=== PATIENT | male | born 1955 | race Caucasian/White ===

== ENCOUNTER 2022-01-16 10:07 | Outpatient (CLI) | payer BC | END 2022-01-16 10:08 | disposition home or self-care (01) | LOC: TBSIIMAG 10:07 | PROVIDERS: ATTEND Neurological Surgery | DX: S12.9XXA Fracture of neck, unspecified, initial encounter (principal); M47.812 Spondylosis without myelopathy or radiculopathy, cervical region | CPT/HCPCS: 72040 ==

== ENCOUNTER 2022-01-31 14:26 | Outpatient (CLI) | payer BC | END 2022-01-31 14:27 | disposition home or self-care (01) | LOC: BICCT 14:26 | PROVIDERS: ATTEND Neurological Surgery | DX: S12.9XXA Fracture of neck, unspecified, initial encounter (principal); M47.812 Spondylosis without myelopathy or radiculopathy, cervical region | CPT/HCPCS: 72125 ==

== ENCOUNTER 2022-02-20 15:59 | Outpatient (CLI) | payer BC | END 2022-02-20 16:00 | disposition home or self-care (01) | LOC: RAD-FRANK 15:59 | PROVIDERS: ATTEND Neurological Surgery | DX: S12.9XXA Fracture of neck, unspecified, initial encounter (principal); S12.500D Unspecified displaced fracture of sixth cervical vertebra, subsequent encounter for fracture with routine healing; S12.600D Unspecified displaced fracture of seventh cervical vertebra, subsequent encounter for fracture with routine healing | CPT/HCPCS: 72040 ==

== ENCOUNTER 2022-03-20 09:00 | Outpatient (CLI) | payer BC | END 2022-03-20 09:01 | disposition home or self-care (01) | LOC: TBSIIMAG 09:00 | PROVIDERS: ATTEND Neurological Surgery | DX: S12.9XXD Fracture of neck, unspecified, subsequent encounter (principal); M47.812 Spondylosis without myelopathy or radiculopathy, cervical region | CPT/HCPCS: 72141 ==